=== PATIENT | male | born 1940 | race Caucasian/White ===

== ENCOUNTER 2018-02-12 12:03 | Emergency (ER) | payer OTHER ==
[2018-02-12 12:24] LABS: BASOPHILS % (AUTO) 3 % (0-3); EOSINOPHILS % (AUTO) 4 % (0-9); HEMATOCRIT 44 % (39-53); HEMOGLOBIN 15.8 gm/dl (13.5-17.7); LYMPHOCYTES % (AUTO) 33.4 % (10-50); MEAN CORPUSCULAR HEMOGLOBIN 32.6 pg (27.0-32.0); MEAN CORPUSCULAR HGB CONC 35.8 gm/dl (32.0-36.0); MEAN CORPUSCULAR VOLUME 91 fL (80-100); MONOCYTES % (AUTO) 9.4 % (0-12); NEUTROPHILS % (AUTO) 50.5 % (37-80)
[2018-02-12] MEDS: SODIUM CHLORIDE 0.9% FLUSH 10 ML SOL IV PRN ×2 (12:25→13:26)
[2018-02-12] MEDS ORDERED: MORPHINE SULFATE 10 MG/ML SOL IV ONE (12:25)
[2018-02-12] MEDS ORDERED: ONDANSETRON HCL 4 MG/2 ML SOL IV ONE (12:25)
[2018-02-12] MEDS ORDERED: ONDANSETRON HCL 4 MG/2 ML SOL ONE (12:27)
[2018-02-12] MEDS ORDERED: MORPHINE SULFATE 10 MG/ML SOL ONE (12:27)
[2018-02-12 12:36] VITALS: TEMP 98.2
[2018-02-12 12:36] LABS: INR 0.99 (0.86-1.12)
[2018-02-12 12:41] LABS: BLOOD UREA NITROGEN 16 mg/dl (7-18); CALCIUM 9.8 mg/dl (8.5-10.1); CARBON DIOXIDE 25.1 mEq/L (21-32); CHLORIDE 103 mMol/L (98-107); CREATININE 1.09 mg/dl (0.80-1.30); GLOM FILT RATE 66 mL/min (>60); GLUCOSE 117 mg/dl (74-106); SODIUM 139 mMol/L (136-145); TROP I < 0.017 ng/ml (0.000-0.056)
[2018-02-12 12:57] VITALS: BP 146/85; PULSE 63; RESP 16; O2SAT 94
[2018-02-12] MEDS ORDERED: KETOROLAC TROMETHAMINE 30 MG/ML SOL IV ONE (13:20)
[2018-02-12] MEDS ORDERED: KETOROLAC TROMETHAMINE 30 MG/ML SOL ONE (13:25)
== END 2018-02-12 14:00 | disposition home or self-care (01) | DRG 313 ==
LOC: ED 12:03
DX: R07.9 Chest pain, unspecified (principal); R51 Headache
CPT/HCPCS: 36415; 70450; 71045; 80048; 83880; 84484; 85025; 85378; 85610; 85730; 93005; 96374; 96375; 99284; 99285; J1885; J2270; J2405